=== PATIENT | female | born 1965 | race Two or more races ===

== ENCOUNTER 2017-07-08 13:28 | Inpatient (IN) | payer SELFPAY ==
[~2017-07-08] VITALS: Ht 170.2 cm; Wt 72.0 kg
[2017-07-08] MEDS ORDERED: ACETAMINOPHEN 325 MG TAB PO ONE ×2 (13:42→13:45)
[2017-07-08 14:16] LABS: Basophils # (auto) 0.1 uL; Basophils % (auto) 0.7 % (0.0-2.0); Eosinophils # (auto) 0 uL; Eosinophils % (auto) 0.1 % (0.0-7.0); Hematocrit 45.2 % (36.0-46.0); Hemoglobin 15.7 g/dL (12.2-16.2); Lymphocytes # (auto) 1.2 uL; Lymphocytes % (auto) 5.7 % (10.0-50.0); Mean Corpuscular Hemoglobin 33.7 pg (28.0-32.0); Mean Corpuscular Hgb Conc. 34.7 g/dL (32.0-36.0); Mean Corpuscular Volume 97.3 fL (80.0-100.0); Monocytes # (auto) 1.7 uL; Monocytes % (auto) 8.1 % (0.0-12.0); Neutrophils # (auto) 18.5 uL; Neutrophils % (auto) 85.4 % (37.0-80.0); Platelet Count (auto) 225 10^3/uL (140-450); Red Blood Cells 4.65 10^6/uL (4.0-5.20); Red Cell Distribution Width 12.6 % (11.8-14.3); White Blood Cell 21.7 10^3/uL (4.4-10.8)
[2017-07-08 14:34] LABS: Alanine Aminotransferase 41 U/L (13-56); Albumin 3.7 g/dL (3.4-5.0); Alkaline Phosphatase 62 U/L (45-117); Anion Gap 9 (5-15); Aspartate Aminotransferase 24 U/L (15-37); BUN/Creatinine Ratio 17.9; Bilirubin, Total 0.8 mg/dL (0.2-1.0); Blood Urea Nitrogen 12 mg/dL (7-18); Calcium 8.4 mg/dL (8.5-10.1); Carbon Dioxide 24 mmol/L (21-32); Chloride 103 mmol/L (98-107); GFR African American 119 mL/min; GFR Non-African American 99 mL/min; Glucose 104 mg/dL (74-106); Potassium 3.8 mmol/L (3.5-5.1); Sodium 136 mmol/L (136-145)
[2017-07-08 14:48] LABS: Urine Bacteria FEW /hpf (None Seen); Urine Blood 2+ /uL (Negative); Urine Specific Gravity 1.012 (1.001-1.035); Urine WBC 93 /hpf (0 - 5)
[2017-07-08] MEDS ORDERED: SODIUM CHLORIDE 0.9% 1,000 ML IVB ONE (18:02)
[2017-07-08] MEDS ORDERED: CEFOXITIN SODIUM 1 GM in D5W 5% 50 ML IV ONE (18:15)
[2017-07-08] MEDS ORDERED: TEMAZEPAM 15 MG CAP PO PRN (18:45)
[2017-07-08] MEDS ORDERED: MORPHINE SULFATE 4 MG/ML SYRG IV PRN ×2 (18:45)
[2017-07-08] MEDS ORDERED: PROMETHAZINE HCL 25 MG/ML 1ML IV PRN (18:45)
[2017-07-08] MEDS ORDERED: LORazepam 0.5 MG TAB PO PRN (18:45)
[2017-07-08] MEDS ORDERED: PIPERACILLIN-TAZOB 3.375GM 50 ML IV ONE (18:45)
[2017-07-08] MEDS ORDERED: NITROGLYCERIN 0.4 MG SL TAB SL PRN (18:45)
[2017-07-08] MEDS: FAMOTIDINE (10MG/ML) 2ML VL IV SCH (19:12)
[2017-07-08 19:23] LABS: INR 1.03 (0.9-1.15); Partial Thromboplastin Time 28.5 sec (22.64-33.71); Prothrombin Time 11.2 sec (9.37-12.3)
[2017-07-08 19:28] LABS: Magnesium 2.1 mg/dL (1.6-2.6)
[2017-07-08] MEDS ORDERED: methylPREDNISolone SOD SUCC 40 MG/ML VL IV ONE (19:45)
[2017-07-08] MEDS ORDERED: IOHEXOL 350 MG/ML 100ML IJ ONE (20:43)
[2017-07-08] MEDS: SODIUM CHLORIDE 0.9% 1,000 ML IV SCH (21:04)
[2017-07-08] MEDS: HYDROcodone-ACET 5/325MG TAB PO PRN (21:21)
[2017-07-08 22:23] VITALS: BP 139/73
[2017-07-08 22:30] VITALS: BP 139/73
[2017-07-09] MEDS: PIPERACILLIN-TAZOB 3.375GM 50 ML IV SCH ×5 (00:54→20:45)
[2017-07-09] MEDS: methylPREDNISolone SOD SUCC 40 MG/ML VL IV SCH ×3 (01:01→21:10)
[2017-07-09] MEDS ORDERED: IBUP600T27 PO (02:09)
[2017-07-09] MEDS ORDERED: METH2.5T3 PO (02:09)
[2017-07-09] MEDS ORDERED: FOLI1TAB6 PO (02:09)
[2017-07-09] MEDS ORDERED: PRE5T GT (02:09)
[2017-07-09 05:00] VITALS: BP 104/67
[2017-07-09] MEDS: HYDROcodone-ACET 5/325MG TAB PO PRN (05:27)
[2017-07-09 06:02] LABS: Basophils # (auto) 0 uL; Basophils % (auto) 0.1 % (0.0-2.0); Eosinophils # (auto) 0 uL; Eosinophils % (auto) 0.1 % (0.0-7.0); Hematocrit 41.4 % (36.0-46.0); Hemoglobin 14.3 g/dL (12.2-16.2); Lymphocytes # (auto) 0.7 uL; Lymphocytes % (auto) 4.3 % (10.0-50.0); Mean Corpuscular Hemoglobin 33.6 pg (28.0-32.0); Mean Corpuscular Hgb Conc. 34.7 g/dL (32.0-36.0); Mean Corpuscular Volume 96.8 fL (80.0-100.0); Monocytes # (auto) 0.3 uL; Monocytes % (auto) 1.9 % (0.0-12.0); Neutrophils # (auto) 15.7 uL; Neutrophils % (auto) 93.6 % (37.0-80.0); Nucleated Red Blood Cells % 0.1 %; Platelet Count (auto) 207 10^3/uL (140-450); Red Blood Cells 4.27 10^6/uL (4.0-5.20); White Blood Cell 16.8 10^3/uL (4.4-10.8)
[2017-07-09 06:53] LABS: Alanine Aminotransferase 32 U/L (13-56); Albumin 3.2 g/dL (3.4-5.0); Alkaline Phosphatase 60 U/L (45-117); Anion Gap 9 (5-15); Aspartate Aminotransferase 18 U/L (15-37); Bilirubin, Total 0.5 mg/dL (0.2-1.0); Blood Urea Nitrogen 12 mg/dL (7-18); Calcium 8.2 mg/dL (8.5-10.1); Carbon Dioxide 24 mmol/L (21-32); Chloride 107 mmol/L (98-107); Cholesterol 127 mg/dL (< 200); GFR African American 136 mL/min; GFR Non-African American 112 mL/min; Glucose 154 mg/dL (74-106); HDL Cholesterol 40 mg/dL (40-59); LDL Cholesterol 81 mg/dL (< 100); Potassium 4.1 mmol/L (3.5-5.1); Sodium 140 mmol/L (136-145); Total Protein 7.2 g/dL (6.4-8.2); Triglycerides 66 mg/dL (< 150)
[2017-07-09] MEDS: FAMOTIDINE (10MG/ML) 2ML VL IV SCH (06:53)
[2017-07-09] MEDS: SODIUM CHLORIDE 0.9% 1,000 ML IV SCH ×3 (06:54→20:00)
[2017-07-09 09:22] VITALS: BP 115/61
[2017-07-09] MEDS: ASPirin 81 mg TAB PO SCH (10:13)
[2017-07-09] MEDS: ENOXAPARIN SOD 40 MG/0.4 ML SYRINGE SC SCH (10:14)
[2017-07-09 11:57] VITALS: BP 127/75
[2017-07-09] MEDS: ACETAMINOPHEN 500 MG TAB PO PRN ×2 (16:06→21:11)
[2017-07-09 16:41] VITALS: BP 134/61
[2017-07-09 22:00] VITALS: BP 116/70
[2017-07-10] MEDS: SODIUM CHLORIDE 0.9% 1,000 ML IV SCH ×2 (02:00→09:39)
[2017-07-10] MEDS: PIPERACILLIN-TAZOB 3.375GM 50 ML IV SCH ×3 (02:06→14:30)
[2017-07-10 05:00] VITALS: BP 120/75
[2017-07-10] MEDS: FAMOTIDINE (10MG/ML) 2ML VL IV SCH ×2 (05:57→06:45)
[2017-07-10] MEDS: ACETAMINOPHEN 500 MG TAB PO PRN (06:14)
[2017-07-10 08:30] VITALS: BP 123/76
[2017-07-10] MEDS: ENOXAPARIN SOD 40 MG/0.4 ML SYRINGE SC SCH (09:38)
[2017-07-10] MEDS: ASPirin 81 mg TAB PO SCH (09:38)
[2017-07-10] MEDS: methylPREDNISolone SOD SUCC 40 MG/ML VL IV SCH (09:38)
[2017-07-10 13:00] VITALS: BP 139/87
[2017-07-10 16:19] VITALS: BP 139/87
[2017-07-10 16:30] VITALS: BP 115/78
== END 2017-07-10 17:00 | disposition home or self-care (01) | DRG 872 ==
LOC: ER 13:28 → EDSEX 13:28 → TELE 13:29 → TELE-WESTW 22:23 → WEST WING 22:33
PROVIDERS: ADMIT Internal Medicine; ATTEND Internal Medicine
DX: A41.9 Sepsis, unspecified organism (principal); M32.9 Systemic lupus erythematosus, unspecified; N39.0 Urinary tract infection, site not specified; E66.3 Overweight; M79.7 Fibromyalgia; M08.20 Juvenile rheumatoid arthritis with systemic onset, unspecified site; Z82.49 Family history of ischemic heart disease and other diseases of the circulatory system; Z90.710 Acquired absence of both cervix and uterus; Z68.24 Body mass index [BMI] 24.0-24.9, adult; Z79.899 Other long term (current) drug therapy
CPT/HCPCS: 36415; 71010; 71275; 80053; 80061; 81001; 82550; 83605; 83735; 84484; 85025; 85379; 85610; 85652; 85730; 86141; 87040; 87086; 87088; 87186; 93005; 94761; 96361; 96365; 96367; 96375; J2543; J3490; J7060